=== PATIENT | male | born 1965 | race Two or more races ===

== ENCOUNTER 2016-09-11 14:35 | Emergency (ER) | payer OTHER ==
--- NOTE | 2016-09-11 15:40 | RAD ---
FINGER LEFT HISTORY: Finger laceration. COMPARISONS: None. FINDINGS: 3 views of the left second ray demonstrate evidence of a fracture involving the tuft of the distal phalanx. There is slight volar displacement of the distal fragment observed. Associated soft tissue distortion is present as well. IMPRESSION: 1. A minimally displaced fracture of the tuft of the distal phalanx of the second ray with associated soft tissue distortion.
== END 2016-09-11 17:07 | disposition home or self-care (01) ==
LOC: ED 14:35
DX: S61.211A Laceration without foreign body of left index finger without damage to nail, initial encounter (principal); S62.661B Nondisplaced fracture of distal phalanx of left index finger, initial encounter for open fracture; S61.213A Laceration without foreign body of left middle finger without damage to nail, initial encounter; W27.8XXA Contact with other nonpowered hand tool, initial encounter; Y93.H2 Activity, gardening and landscaping; Y92.89 Other specified places as the place of occurrence of the external cause